=== PATIENT | male | born 1980 | race Caucasian/White ===

== ENCOUNTER 2021-10-13 16:04 | Emergency (ER) | payer BC ==
[~2021-10-13] VITALS: Ht 177.8 cm; Wt 113.4 kg
[2021-10-13 16:10] VITALS: BP_SYST 135
--- NOTE | 2021-10-13 17:00 | NUR ---
Pt brought by self, A&Ox4, pt presents to ER with chest pain x 3 days, skin pink and warm, cap refill <3, VSS, respirations even and unlabored, will cont to monitor.
[2021-10-13 17:09] LABS: ANION GAP 8 (5-15); CALCIUM 8.4 mg/dL (8.4-11.0); CHLORIDE 102 mmol/L (98-107); CREATININE 1.16 mg/dL (0.55-1.30); GLUCOSE 122 mg/dL (70-99); SODIUM SERUM 138 mmol/L (136-145); UREA NITROGEN, BLOOD 15 mg/dL (8-21)
[2021-10-13 17:17] LABS: GFR AFRICAN AMERICAN 91 mL/min (>90)
[2021-10-13 17:18] LABS: ALBUMIN 3.6 g/dL (3.4-4.8); HEMATOCRIT 49.8 % (36-54); HEMOGLOBIN 17.1 g/dL (14.0-18.0); MEAN CORPUSCULAR HEMOGLOBIN 30 pg (27-31); MEAN CORPUSCULAR HGB CONC 34 % (32-36); MEAN CORPUSCULAR VOLUME 88 fL (79.0-98.0); PLATELET COUNT (AUTO) 222 K/uL (130-430); RED BLOOD CELL COUNT(AUTO) 5.67 MIL/uL (4.2-6.2); RED CELL DISTRIBUTION WIDTH 13.2 % (9.0-15.0); TOTAL BILIRUBIN 0.7 mg/dL (0.0-1.0); WHITE BLOOD COUNT (AUTO) 11.4 K/uL (4.8-10.8)
[2021-10-13 17:20] LABS: ACETAMINOPHEN < 1 ug/mL (1-30); ALCOHOL, BLOOD < 3 mg/dL (<10)
--- NOTE | 2021-10-13 17:30 | NUR ---
Dr Amezquita evaluating patient in the triage room
[2021-10-13 17:46] LABS: LIPASE 186 U/L (73-393)
[2021-10-13 18:14] LABS: ALANINE AMINOTRANSFERASE 42 U/L (12-78); ASPARTATE AMINOTRANSFERASE 43 U/L (10-37)
--- NOTE | 2021-10-13 18:30 | NUR ---
Pt in the waiting room, ambulatory, respirations even and unlabored, cap refill<3, awaiting for room availability
--- NOTE | 2021-10-13 19:37 | NUR ---
Report given to Aieme BECK
[2021-10-13 19:44] LABS: BAND % (MANUAL) 1 % (0-6); LYMPHOCYTES % (MANUAL) 37 % (20-46); MONOCYTES % (MANUAL) 15 % (0-11)
[2021-10-13 19:45] LABS: BASOPHILS % (MANUAL) 0 % (0-2); EOSINOPHILS % (MANUAL) 2 % (0-7)
[2021-10-13] MEDS ORDERED: PRO40 PO (19:52)
[2021-10-13] MEDS ORDERED: SUCR1TAB78 PO (19:52)
--- NOTE | 2021-10-13 20:02 | NUR ---
Patient given written and verbal discharge instructions and verbalizes understanding. ER MD discussed with patient the results and treatment provided. Patient in stable condition. ID arm band removed. Rx of PROTONIX, CARAFATE given. Patient educated on pain management and to follow up with PMD. Pain Scale 0/10. Opportunity for questions provided and answered. Medication side effect fact sheet provided.
== END 2021-10-13 20:02 | disposition home or self-care (01) ==
LOC: SED 16:04
DX: K29.70 Gastritis, unspecified, without bleeding (principal); R07.89 Other chest pain; I10 Essential (primary) hypertension; E11.9 Type 2 diabetes mellitus without complications; Z79.899 Other long term (current) drug therapy
CPT/HCPCS: 99285; 71045; 85027; 80053; 83690; 85007; 84484; 36415; 93005; G0482; G0480; G0481